=== PATIENT | female | born 1975 | race American Indian/Alaskan Native ===

== ENCOUNTER 2018-10-15 10:06 | Day surgery (SDC) | payer OTHER ==
[~2018-10-15 10:06] MED LIST: ANCEF/STERILE WATER 2 GM/20 ML 2 GM/20 ML SYRINGE IV NR; BACITRACIN IR ONE; BACITRACIN ONE; GENTAMICIN IV ONE; GENTAMICIN ONE; LACTATED RINGERS 1,000 ML IV SCH; NACL 0.9% IR ONE; NACL P/F VIAL (10 ML) 10 ML ONE; XYLOCAINE 1%/ EPI 1:100,000 INFILTRATI ONE
--- NOTE | 2018-10-15 11:10 | Anesthesia Day of Surgery ---
Anesthesia Day of Surgery - Day of Surgery Patient Examined: Yes Patient H&P Reviewed: Yes Patient is NPO: Yes Beta Blockers: No Cardiac Clearance: Yes Pulmonary Clearance: Yes Feliciano's Test: N/A
--- NOTE | 2018-10-15 11:11 | Anesthesia Consultation ---
Anesthesia Consult and Med Hx Date of service: 10/15/18 - Airway Anesthetic Teeth Evaluation: Good ROM Head & Neck: Adequate Mental/Hyoid Distance: Adequate Mallampati Class: Class II Intubation Access Assessment: Good - Pulmonary Exam CTA: Yes - Cardiac Exam Cardiac Exam: RRR - Pre-Operative Health Status ASA Pre-Surgery Classification: ASA1 Proposed Anesthetic Plan: General - Pulmonary Hx Smoking: No Hx Asthma: No SOB: No COPD: No Hx Pneumonia: No Hx Sleep Apnea: No - Central Nervous System Hx Neuromuscular Disorder: No Hx Psychiatric Problems: No - Other Systems Hx Alcohol Use: Yes ([facility]) Hx Substance Use: No Hx Cancer: No
[2018-10-15] MEDS ORDERED: PEPCID IV NR (11:30)
[2018-10-15] MEDS ORDERED: ZOFRAN ONE (11:38)
[2018-10-15] MEDS ORDERED: DILAUDID ONE ×2 (11:38→14:34)
[2018-10-15] MEDS ORDERED: ZEMURON IV ONE (11:38)
[2018-10-15] MEDS ORDERED: XYLOCAINE MPF 2% ONE (11:38)
[2018-10-15] MEDS ORDERED: DIPRIVAN 10 MG/ML IV ONE (11:39)
[2018-10-15] MEDS ORDERED: NEURONTIN PO NR (12:00)
[2018-10-15] MEDS ORDERED: AMPICILLIN 500 MG in NACL 0.9% 50 ML IV ONE (12:12)
[2018-10-15] MEDS ORDERED: NACL P/F VIAL (10 ML) 10 ML ONE (12:51)
[2018-10-15] MEDS ORDERED: AMPICILLIN IM ONE (13:00)
[2018-10-15] MEDS ORDERED: DECADRON ONE (14:29)
[2018-10-15] MEDS ORDERED: ROBINUL ONE (14:29)
[2018-10-15] MEDS ORDERED: BLOXIVERZ ONE (14:29)
[2018-10-15] MEDS: DILAUDID IV PRN ×2 (14:30→14:45)
--- NOTE | 2018-10-15 14:31 | Operative Report ---
Operative Report Operative Report: Plastic Surgery Operative Report Preoperative Diagnosis: Unacceptable cosmetic appearance Postoperative Diagnosis: Same Procedure: Bilateral breast augmentation with silicone implants Surgeon: Mary Ellen Escobar MD Coastal Tug Mate: None Anesthesia: General EBL: Minimal Specimens: None Indications: This patient is a 43 year old female who presented with a complaint of inadequate breast volume, upper pole fullness and breast projection after having children. She desires breast augmentation with silicone implants to give her more roundness and fullness. We discussed the benefits and risks of the procedure as well as volume expectations and associated warranties. Patient opted for Dairy silicone implants. Informed consent was obtained. Patient was marked in the preoperative holding area. Procedure: After review of pertinent history and physical exam findings the patient was brought to the operating room and placed supine on the OR table. After induction of adequate general anesthesia the patient's chest was prepped and draped in the usual sterile surgical fashion. To begin, the inframammary incisions were infiltrated with 1% lidocaine with epinephrine and a No. 15 blade was used to make the right incision. Electrocautery was used to carry the incision through the subcutaneous tissue down to pectoralis fascia. Pectoralis muscle was incised and a pocket was dissected to accommodate the implant. The pocket was then irrigated with triple antibiotic solution and checked for hemostasis. Next, a 350cc Dairy silicone smooth round high profile implant (SN [id number]) was placed using a Wong funnel. The exact same procedure was performed on the left breast and a 350cc Dairy silicone smooth round high profile implant (SN [id number]) was placed in the submuscular pocket using a Wong funnel. Satisfied with shape and position, we began a 3 layered closure using a 3-0 Monoderm Quill suture. Skin incisions were then dressed with Dermabond and upon drying covered with abdominal pads. Patient was then awakened from general anesthesia and transferred to recovery room in stable condition. She tolerated the procedure well. There were no complications and all sponge needle and instrument counts were correct at the end of the case.
[2018-10-15] MEDS ORDERED: NORCO 7.5/325 PO PRN (14:32)
[2018-10-15] MEDS ORDERED: ZOFRAN IV PRN (14:32)
[2018-10-15] MEDS ORDERED: ROBAXIN PO PRN (14:32)
[2018-10-15 15:42] VITALS: BP 103/62
--- NOTE | 2018-10-15 16:30 | Post Anesthesia Evaluation ---
- Post Anesthesia Evaluation Patient Participated: Yes Airway Patent: Yes Stable Respiratory Function: Yes Nausea/Vomiting: No Temp > 96.8F: Yes Pain Manageable: Yes Adequeate Hydration: Yes Anesthesia Complications: No
== END 2018-10-15 16:20 | disposition home or self-care (01) ==
LOC: OR 10:06
PROVIDERS: ATTEND Plastic Surgery
DX: Z41.1 Encounter for cosmetic surgery (principal); Z72.89 Other problems related to lifestyle; Z98.890 Other specified postprocedural states
CPT/HCPCS: 19325; 81025; J0290; J0690; J1100; J1170; J1580; J2405; J2704; J2710; J7120